=== PATIENT | male | born 1960 | race Caucasian/White ===

== ENCOUNTER 2021-07-17 02:08 | Outpatient (CLI) | payer OTHER, SELFPAY ==
--- NOTE | 2021-07-17 | DI.US_ITS ---
APPROVED REPORT EXAM: Comprehensive 2D, Doppler, and color-flow Echocardiogram Patient Location: Out-Patient Rn Nursery: Nelli Byers RDCS (AE) Indications: Dyspnea at rest, CAD, CABG X3, h/o [place] Other Information Study Quality: Adequate Conclusion Normal left ventricular wall thickness and chamber size. Estimated ejection fraction is 60%. There ar e no segmental wall motion abnormalities Normal right ventricular size and systolic function Both atria are normal in size There are no structural valvular abnormalities Mild mitral regurgitation Wall motion Left Ventricle The left ventricle is normal size. The left ventricular systolic function is normal. The left ventric ular ejection fraction is within the normal range. There is normal left ventricular wall thickness. T here is normal LV segmental wall motion. There is no ventricular septal defect visualized. LVEF is 60 %. Right Ventricle The right ventricle is normal size. The right ventricular systolic function is normal. The RVSP is 18 .8 mmHg. Atria The left atrium size is normal. The right atrium size is normal. The interatrial septum is intact wit h no evidence for an atrial septal defect. Aortic Valve The aortic valve is normal in structure. Aortic valve is trileaflet. There is no aortic valvular sten osis. No aortic regurgitation is present. Mitral Valve The mitral valve is normal in structure. No evidence of mitral valve stenosis. Mild mitral regurgitat ion. Tricuspid Valve The tricuspid valve is normal in structure. There is no tricuspid valve stenosis. Trace to mild tricu spid regurgitation. Pulmonic Valve The pulmonary valve is normal in structure. There is no pulmonic valvular stenosis. Trace pulmonic re gurgitation. Great Vessels The aortic root is normal in size. The ascending aorta is normal in size. Aortic arch is normal in ca liber. IVC is normal in size and collapses >50% with inspiration. Pericardium There is no pericardial effusion. 2D Dimensions IVSD d PLAX 0.91 cm M: 0.6-1.2 LV Vol A2C d MOD 99.4 mL LVPW d PLAX 0.92 cm M: 0.6 - 1.2 LV Vol A4C d MOD 118.2 mL LVID d PLAX 4.53 cm M: 4.2 - 5.8 LA vol/ BSA A2C s A-L 23.0 mL/m2 LVDs 3.05 cm M: 2.5 - 4.0 LA vol/ BSA A4C s A-L 22.9 mL/m2 Ao Root d 2.54 cm M: 3.1 - 3.7 LA Vol/ BSA Biplane s A-L 24.2 mL/m2 RA Area A4C 14.55 cm2 LA Area A4C s MOD 18.09 cm2 RA Vol/ BSA A4C s A-L 16.8 mL/m2 LA Area A2C s MOD 17.18 cm2 Ao Asc Diam d 3.29 cm M: 2.6 - 3.4 LV EF A4C MOD 56.0 % LV EF Teichholz 60.3 % LV EF A2C MOD 57.6 % LVEF (Lozano's) 55.81 % M: 52 - 72 LV EF Biplane MOD 55.8 % LV Volume 79.10 mL M: 62 - 150 SV 60.62 mL LV Volume Index 36.11 mL/m2 M: 34 - 74 SV Index 27.67 mL/m2 LV Vol Biplane MOD 108.6 mL FS 32.00 % M-Mode TAPSE 2.47 cm (M/F) >1.7 LV Diastology MV E' medial 0.078 (>0.07 m/s) E/A Ratio 1.2 LV E/e MED 11.10 (<14) MV E Vmax 0.87 (0.4-1.3 m/s) MV E' lateral 0.080 (>0.1 m/s) MV A Vmax 0.70 (0.4-1.3 m/s) LV E/e LAT 10.85 (<14) MV E/A Ratio 1.20 MV E/E' medial 11.13 MV E/E' lateral 10.90 Aortic Valve LVOT Area 2.88 cm2 AoV Area Vmax 2.24 cm2 LVOT Vmax 0.89 m/s AoV Area/ BSA (Vmax) 1.02 cm2/m2 LVOT Mean Rizwan. 0.50 m/s JAKUB Mean Rizwan. 1.73 cm2 LVOT Peak Grad 3.2 mmHg JAKUB Mean Rizwan. Index 0.79 cm2/m2 LVOT Mean Grad 1.3 mmHg LVOT VTI 0.178 m LVOT Diam s 1.90 cm AoV Vmax 1.15 m/s Velocity Ratio 0.77 AoV Mean Rizwan. 0.83 m/s AoV Peak Grad 5.3 mmHg LVOT SV 51.20 mL AoV Mean Grad 3.0 mmHg AoV VTI 0.261 m AoV Area VTI 1.96 cm2 AoV Area/ BSA (VTI) 0.89 cm/m2 Mitral Valve MV DT 195 (160-240 msec) MR Vmax 4.91 m/s MV PHT 56 msec MR VTI 1.828 m MV Area PHT 3.90 cm2 MR Peak Grad 96.6 mmHg MV VTI 0.371 m MR Mean Grad 72.8 mmHg MV VTI Annulus 0.372 m MR PISA Radius 0.52 cm MV Area VTI 1.38 (4.0-6.0 cm2) MR EROA 0.12 cm2 MR Aliasing Velocity 0.35 m/s MR PISA 1.72 cm2 Pulmonary Valve PV Vmax 1.11 (0.5-1.5 m/s) RVOT Peak Gr. 1.04 mmHg PV Peak Grad 4.9 mmHg RVOT Mean Gr. 0.55 mmHg PV Mean Grad 2.1 mmHg RVOT VTI 0.117 m PV VTI 0.230 m RVOT Vmax 0.51 m/s Tricuspid Valve TR Peak Grad 15.7 mmHg TR Vmax 1.98 m/s RA Pressure 3.00 mmHg RVSP (TR) 18.8 mmHg
== END 2021-07-17 02:28 ==
PROVIDERS: PCP Family Medicine; Visit Provider Family Medicine
DX: R06.09 Other forms of dyspnea (principal); I25.10 Atherosclerotic heart disease of native coronary artery without angina pectoris; I25.2 Old myocardial infarction; Z95.1 Presence of aortocoronary bypass graft; I34.0 Nonrheumatic mitral (valve) insufficiency
CPT/HCPCS: 93306

== ENCOUNTER 2021-09-23 13:17 | Outpatient (REF) | payer OTHER, SELFPAY ==
[2021-09-23 15:57] LABS: COMMENT (LAB VIEW ONLY) 85.14 mg/dL
[2021-09-24 10:18] LABS: HIV-1/2 Ag & Ab Screen Negative (Negative)
[2021-09-24 10:30] LABS: Hepatitis C Ab w Rflx HCV PCR Negative (Negative)
== END 2021-09-23 13:18 | disposition home or self-care (01) ==
LOC: NCHCN 13:17
PROVIDERS: PCP Family Medicine; Visit Provider Family Medicine
DX: Z11.4 Encounter for screening for human immunodeficiency virus [HIV] (principal); Z11.59 Encounter for screening for other viral diseases; E11.9 Type 2 diabetes mellitus without complications; Z00.00 Encounter for general adult medical examination without abnormal findings
CPT/HCPCS: 86803; 87389; 82043; 82570

== ENCOUNTER 2021-11-06 02:43 | Outpatient (CLI) | payer OTHER, SELFPAY ==
[2021-11-06] MEDS: Inhaler, Assist Device 1 EACH MC (11:55)
[2021-11-06] MEDS: Albuterol HFA 18 GM 200 PUFF INH IH (11:55)
--- NOTE | 2021-11-07 13:59 | W.PFT ---
Date of service: 11/06/21 Time of Service: 10:00 Pulmonary Function Test Result Requesting Provider Chuy Schwarz Indications: Dyspnea on exertion Interpretation Spirometry: There is moderately severe airflow limitation. There is a significant bronchodilator response. Lung Volumes: There is mild restriction Diffusion Capacity: The diffusion is reduced Airway Pressure: Airways resistance is normal Impression There is a mixed process. There is moderately severe airflow obstruction as well as mild restriction with a reduced diffusing capacity. Chest imaging may be indicated to assess for any interstitial lung disease Clinical Correlation therefore is recommended.
== END 2021-11-06 02:44 | disposition home or self-care (01) ==
LOC: RT 02:43
PROVIDERS: PCP Family Medicine; Visit Provider Family Medicine
DX: R06.09 Other forms of dyspnea (principal); Z95.1 Presence of aortocoronary bypass graft; G89.22 Chronic post-thoracotomy pain; J45.30 Mild persistent asthma, uncomplicated; Z87.891 Personal history of nicotine dependence; R94.2 Abnormal results of pulmonary function studies
CPT/HCPCS: 94060; 94726; 94729

== ENCOUNTER 2022-01-14 14:49 | Outpatient (REF) | payer OTHER, SELFPAY ==
[2022-01-14 15:16] LABS: HCT 49.3 % (40.0-50.0); HGB 15.8 g/dL (13.5-17.5); MCH 28.3 pg (27.0-33.0); MCV 88.4 fL (80-95); Platelet Count 196 10^3/uL (130-400); RBC 5.58 10^6/uL (4.36-5.78); RDW 14.6 % (11.8-14.1); RDW-SD 46.8 fL; WBC 10.74 10^3/uL (4.4-10.8)
[2022-01-14 15:36] LABS: ALT 44 U/L (16-63); AST 22 U/L (15-37); Albumin 4.1 g/dL (3.4-5.0); Alkaline Phosphatase 77 U/L (46-116); Anion Gap 10.7 mmol/L (3-11); BUN 18 mg/dL (7-18); Bilirubin, Total 0.6 mg/dL (0.2-1.0); CO2 26.3 mmol/L (21.0-32.0); CREATININE 1.1 mg/dL (0.70-1.30); Calcium 9.6 mg/dL (8.5-10.1); Chloride 104 mmol/L (98-107); Glucose 131 mg/dL (74-106); Potassium 4.5 mmol/L (3.5-5.1); Sodium 141 mmol/L (136-145); Total Protein 7.5 g/dL (6.4-8.2)
== END 2022-01-14 14:50 | disposition home or self-care (01) ==
LOC: NCHCN 14:49
PROVIDERS: PCP Family Medicine; Visit Provider Family Medicine
DX: Z00.00 Encounter for general adult medical examination without abnormal findings (principal); I10 Essential (primary) hypertension; R06.09 Other forms of dyspnea
CPT/HCPCS: 80053; 85027

== ENCOUNTER 2022-04-15 04:15 | Outpatient (CLI) | payer OTHER, SELFPAY ==
[2022-04-15 09:19] LABS: Source Nasal/Nares
[2022-04-15 14:15] LABS: COVID-19 PCR Negative (Negative)
== END 2022-04-15 04:16 | disposition home or self-care (01) ==
LOC: LBO 04:15
PROVIDERS: PCP Family Medicine; Visit Provider Surgery
DX: Z20.822 Contact with and (suspected) exposure to COVID-19 (principal); Z01.818 Encounter for other preprocedural examination
CPT/HCPCS: 87635

== ENCOUNTER 2022-04-17 09:14 | Day surgery (SDC) | payer OTHER, SELFPAY ==
--- NOTE | 2022-04-16 11:27 | W.COLOREPORT ---
Colonoscopy Report Date of procedure: 04/16/22 Pre-op diagnosis general: crc screen Post-op diagnosis procedure note: other (Diverticula and rectal polyp) Surgeon: Minerva Koenig Anesthesia Type: General:No Airway Estimated blood loss (mL): 1 Pathology: other Complications: None Disposition: same day Prep: Miralax/Dulcolax Retraction Time: 9 Procedure Description: After informed consent was obtained the patient was taken to the procedure room and placed in a left decubitous position. Monitors were applied and a time out was done. The patients name, date of , procedure, allergies to medications and metal in their body was reviewed. The patient was then sedated. Once sedated and comfortable a rectal exam was done. External exam was normal. Internal exam revealed a normal sphincter tone and no palpable masses. The scope was then introduced and retrofelexed. No internal hemorrhoids were identified. The scope was then advanced to the cecum without difficulty. The TI and appendiceal orifice were identified. The prep was BB PS 3 in all segments for a total of 9.. The scope was then slowly retracted over 9 minutes back into the rectum. he has a small flat 5 mm polyp in the rectum. This is removed with a cold biting forcep. All specimen is retrieved and no bleeding is noted. He has moderate diverticula of the sigmoid colon. There is no signs of active bleeding or infection. The mucosa is pink and healthy with a normal vascular pattern. There are no AVMs visualized today. The scope was removed and the patient was woken up and taken back to Same day surgery in stable condition. The patient tolerated the procedure well and there were no immediate complications. Follow up: The patient should follow up in 5-7 years, unless they develop changes in bowel habits or other new gastrointestinal complaints.
--- NOTE | 2022-04-16 11:28 | PDOC.DSDIS_ITS ---
Discharge Plan Disposition Patient Disposition: HOME Condition: Good Discharge Details Reason For Visit: colon scope Attending Provider: Minerva Koenig Primary Care Provider: Chuy Schwarz Home Meds and New Rx's Prescriptions: Continued coenzyme Q10 [Co Q-10] 10 mg capsule 10 mg PO DAILY budesonide-formoterol [Symbicort] 160-4.5 mcg/actuation HFA aerosol inhaler 2 puff inhalation BID Qty: 10.2 7RF Spiriva Respimat 2.5 mcg/actuation mist 2 puff inhalation DAILY aspirin 81 MG tablet,delayed release (DR/EC) 81 mg PO DAILY albuterol sulfate [Proventil HFA] 6.7 GM HFA aerosol inhaler 1 - 2 puff Inhalation Q6H PRN Qty: 2 atorvastatin [Lipitor] 80 MG tablet 80 mg PO DAILY Qty: 90 (DME) OneTouch Ultra Test 1 EACH strip 1 ea Miscellaneous AC & HS Qty: 120 Rx Instructions: 250.00 to test blood sugars daily to maintain HGB A1C less than 7. (DME) pen needle, diabetic [Pen Needle] 1 EACH needle 1 ea Miscellaneous QID Qty: 5 Rx Instructions: 31 gauge 5/16 inch BD brand E11.65 Levemir FlexTouch U-100 Insuln 100 unit/mL (3 mL) insulin pen 50 unit subcut QHS glipizide [Glucotrol XL] 5 mg tablet extended release 24hr 5 mg PO DAILY Jardiance 10 mg tablet 10 mg PO DAILY hydroxychloroquine 200 mg tablet 200 mg PO DAILY metoprolol succinate 100 mg tablet extended release 24 hr 100 mg PO DAILY isosorbide mononitrate 30 mg tablet extended release 24 hr 30 mg PO DAILY ezetimibe [Zetia] 10 mg tablet 10 mg PO DAILY lisinopril 5 mg tablet 5 mg PO DAILY gabapentin 100 mg Capsule 100 mg PO TID Discontinued bisacodyl [Dulcolax (bisacodyl)] 5 mg tablet,delayed release (DR/EC) 5 mg PO ONCE Qty: 4 0RF Rx Instructions: Take according to provider's instructions for colonoscopy prep. polyethylene glycol 3350 17 gram/dose powder 17 g PO ONCE Qty: 238 0RF Rx Instructions: To be taken as directed by prescriber's office for colonoscopy prep. Discharge Instructions Additional Instructions: DSU Colonoscopy Post- Op Instructions Instructions for Everyone who is given Anesthesia: For your safety, please do the following for the next twenty-four (24) hours: *Do Not operate a motor vehicle (car, truck, motorcycle, etc.) *Do Not drink alcoholic beverages or use any recreational drugs for the first 24 hours or while taking pain medications. The medications in your body may have a reaction that can be dangerous. *Do Not make any important decisions or sign any important papers. Findings: -diverticula. Make sure you are moving your bowels on a regular basis and not straining. If you find you have problems with constipation or irregularity, I recommend taking a fiber supplement daily. Follow up: Small polyp.-My office will send a letter in 2 to 3 weeks time detailing as to what type of polyp it was and when we want you to repeat the colonoscopy. 1. No lifting over 20 pounds or strenuous activity for the first 24 hours after your procedure. After 24 hours there are no restrictions on your activity but you may feel fatigued for a few days. 2. After you arrive home you may have a light meal and return to your normal diet as you can tolerate it without feeling sick to your stomach. 3. You may have a bloated, gaseous feeling in your belly (abdomen) after a colonoscopy. Passing gas and belching will help. Walking or lying down on your left side with your knees flexed may relieve the discomfort. Call the office at [phone] (Office) or [phone] (Hospital) right away if you notice any of the following: a.Vomiting of blood or ?coffee ground stools?. b.Rectal bleeding 1Tbsp, blood clots or continuous bleeding. c.Severe belly (abdominal) pain. d.A hard distended belly (abdomen) and an inability to pass gas. 4. Please don?t expect to have a normal BM (bowel movement) for 2-3 days after your procedure. 5. If there are questions regarding the findings of your procedure, please contact your doctor 6. If you are unable to contact your doctor with a problem, contact the hospital at [phone]. 7. Continue all your regular medications unless directed otherwise. I understand the above instructions and have no questions. Signature of Patient or Adult Escort Name of Responsible Adult Escort Signature of Nurse Date/Time Stand Alone Forms: Anesthesia Discharge Gabe Fan (DSU) Activity:: See above Diet:: See above Discharge Orders Discharge Orders: Discharge Order (Routine); Ordered 04/16/22 Ordered By: Minerva Koenig
[2022-04-17 09:30] VITALS: BP 152/99; PULSE 87; RESP 18; TEMP 36.3; O2SAT 97
[2022-04-17] MEDS: Lactated Ringers 1,000 ML 80 ML IV (09:51)
--- NOTE | 2022-04-17 10:00 | W.ANESPRE ---
General Info Date of Service Date Performed: 04/17/22 Height: 5 ft 9 in Weight: 108.2 kg Body Mass Index (BMI): 35.2 Surgical Procedure: Operation Date: 04/17/22 09:05 Proposed Procedure Side Surgeon carlos Koenig, DO Meds Allergies and Home Medications Allergies Allergy/AdvReac Type Severity Reaction Status Date / Time metformin AdvReac Unknown sick to Verified 04/17/22 09:34 stomach methotrexate AdvReac Unknown sick to Verified 04/17/22 09:34 stomach Home Medication Medication Instructions Recorded aspirin 81 mg tablet,delayed 81 mg PO DAILY 01/20/13 release albuterol sulfate 90 mcg/actuation 1 - 2 puff inhalation Q6H PRN ##2 02/10/16 aerosol inhaler (Proventil HFA) atorvastatin 80 mg tablet (Lipitor) 80 mg PO DAILY #90 tab-caps 03/13/16 blood sugar diagnostic (OneTouch #120 strips 03/13/16 Ultra Test strips) pen needle, diabetic 31 gauge x ##5 11/27/1604/06 (Pen Needle) empagliflozin 10 mg tablet 10 mg PO DAILY 09/18/21 (Jardiance) ezetimibe 10 mg tablet (Zetia) 10 mg PO DAILY 09/18/21 glipizide 5 mg tablet, extended 5 mg PO DAILY 09/18/21 release 24 hr (Glucotrol XL) hydroxychloroquine 200 mg tablet 200 mg PO DAILY 09/18/21 insulin detemir U-100 100 unit/mL 50 unit subcut QHS 09/18/21 (3 mL) subcutaneous pen (Levemir FlexTouch U-100 Insulin) isosorbide mononitrate 30 mg 30 mg PO DAILY 09/18/21 tablet,extended release 24 hr lisinopril 5 mg tablet 5 mg PO DAILY 09/18/21 metoprolol succinate 100 mg 100 mg PO DAILY 09/18/21 tablet,extended release 24 hr budesonide-formoterol HFA 160 2 puff inhalation BID #10.2 grams 11/11/21 mcg-4.5 mcg/actuation aerosol inhaler (Symbicort) coenzyme Q10 10 mg capsule (Co 10 mg PO DAILY 11/11/21 Q-10) tiotropium bromide 2.5 2 puff inhalation DAILY 02/10/22 mcg/actuation mist for inhalation (Spiriva Respimat) gabapentin 100 mg capsule 100 mg PO TID 04/14/22 Current Visit Medications: Current Medications Generic Name Dose Route Start Last Admin Trade Name Kathleen PRN Reason Stop Dose Admin Hyoscyamine Sulfate 0.125 mg 04/16/22 11:27 Hyoscyamine 0.125 Mg Sl/Oral/Chew SL DIRECTED PRN Ringer's Solution 1,000 mls @ 80 mls/hr 04/17/22 06:00 04/17/22 09:51 IV 04/21/22 23:59 80 mls/hr INFUSION TORSTEN Administration IV Miscellaneous Supplies 1 each 04/17/22 06:00 Iv Access IV 04/21/22 23:59 DIRECTED TORSTEN Ondansetron HCl 4 mg 04/16/22 11:27 Ondansetron 4 Mg/2 Ml Vial IVP Q4H PRN PRN Nausea / Vomiting Sodium Chloride 0 ml 04/17/22 06:00 Normal Saline Flush 10 Ml Syr IV 04/21/22 23:59 PRN PRN Sodium Chloride 0 ml 04/17/22 06:00 Normal Saline 10 Ml Vial IJ 04/21/22 23:59 DIRECTED PRN Sterile Water 0 ml 04/17/22 06:00 Water,Injection,Sterile 10 Ml Vial IJ 04/21/22 23:59 DIRECTED PRN PFSH Active Problems Active Problems: Problem Status Onset Code Type 2 diabetes mellitus E11.9 Restrictive lung disease J98.4 Rheumatoid arthritis M06.9 Dyspnea R06.00 Asthma J45.909 Medical History Medical History Acute post-thoracotomy pain ASCVD (arteriosclerotic cardiovascular disease) CAD (coronary artery disease) Chronic asthma Diabetes mellitus Essential hypertension History of non-ST elevation myocardial infarction (NSTEMI) Hyperlipidemia Neuropathy Rheumatoid arthritis Shortness of breath at rest Vertigo, intermittent Surgical History Surgical History History of colonoscopy History of coronary artery bypass graft (~02/2021) x3 History of surgery Surgery on neck (?I&D), per pt. -BR Tobacco Smoking/Tobacco Use Status: Former Tobacco Use Second hand exposure: No Alcohol Alcohol Intake: current Alcohol intake frequency: a few times a month Alcohol type: beer Substance Use Substance use: Never Substance use type: does not use Vital Signs and Lab Results Vital Signs Most Recent Vital Signs in EMR: Most Recent Vital Signs Temp Pulse Resp BP Pulse Ox 36.3 C L 87 18 152/99 H 97 04/17/22 09:30 04/17/22 09:30 04/17/22 09:30 04/17/22 09:30 04/17/22 09:30 Point of Care Results Point of Care Results: Finger Stick Blood Glucose 171 04/17/22 09:42 Lab Results Blood Type / Crossmatch: No Data to Display Complete Blood Count: No Data to Display Complete Metabolic Panel: No Data to Display Liver Function Panel: No Data to Display Coagulation Panel: No Data to Display Cardiac Panel: No Data to Display Arterial Blood Gas: No Data to Display Venous Blood Gas: No Data to Display Pancreas Panel: No Data to Display Thyroid Panel: No Data to Display Infectious Disease: Coronavirus (COVID-19)(PCR) Negative (Negative) 04/15/22 09:05 Coronavirus 2019 Source Nasal/Nares 04/15/22 09:05 Blood Cultures: No Data to Display Toxicology Panel: No Data to Display Imaging and Studies Imaging and Studies Study information below may be from another EMR and interpreted by another provider. Please see original notes in EMR for more complete details. Echocardiogram Summary: Date of Exam: 07/17/21Sex: M Admission Date: 07/17/21 : 1960 Age: 60 APPROVED REPORT EXAM: Comprehensive 2D, Doppler, and color-flow Echocardiogram Patient Location: Out-Patient University Lecturer: Nelli Byers RDCS ([facility]) Indications: Dyspnea at rest, CAD, CABG X3, h/o [place] Other Information Study Quality: Adequate Conclusion Normal left ventricular wall thickness and chamber size. Estimated ejection fraction is 60%. There are no segmental wall motion abnormalities Normal right ventricular size and systolic function Both atria are normal in size There are no structural valvular abnormalities Mild mitral regurgitation Pulmonary Function Summary: Date of service: 11/06/21 Time of Service: 10:00 Pulmonary Function Test Result Requesting Provider Chuy Schwarz Indications: Dyspnea on exertion Interpretation Spirometry: There is moderately severe airflow limitation. There is a significant bronchodilator response. Lung Volumes: There is mild restriction Diffusion Capacity: The diffusion is reduced Airway Pressure: Airways resistance is normal Impression There is a mixed process. There is moderately severe airflow obstruction as well as mild restriction with a reduced diffusing capacity. Chest imaging may be indicated to assess for any interstitial lung disease Clinical Correlation therefore is recommended. Anesthesia Assessment and Plan Anesthesia History Personal History: No History of Anesthesia Complications Family History: No Family History of Anesthesia Complications Exercise Tolerance Exercise Tolerance: Metabolic Equivalents>4 Pertinent Negatives Pertinent Negatives: No Symptoms of GERD Cardiac & Pulmonary Exam Cardiac Exam: Normal S1/S2 Heart Sounds Pulmonary Exam: Clear Bilateral Breath Sounds Implantable Cardiac Device Does patient have a Pacemaker or an ICD?: No Airway Exam Known Difficult Airway: No Mallampati Class: 2 Mouth Opening: Normal (> 3cm) Thyromental Distance: Greater than 3 cm Neck Range of Motion: Full ROM Neck Circumference: Normal Teeth Condition: Normal Dentition ASA Classification ASA Score: ASA 3 Emergency Case?: No NPO Status NPO Status: NPO Clears >2 hours, Solids >8 hours Anesthesia Plan Resuscitation Status: Full Code Anesthesia Technique: General Anesthesia Airway Planned: Natural Airway Monitors Used: Standard Monitors
[2022-04-17 10:18] VITALS: BMI 35.2
--- NOTE | 2022-04-17 10:47 | BOWEL_PTH ---
PATIENT: Guanakito Cho LOC: [facility] U#:[id number] AGE/SX: 61/M ROOM: RE04/17/[address]: Minerva Koenig : 1960 BED: DIS: 04/17/2022 SPEC #: [id number] RECD: 04/17/22 11:36 STATUS: ALBARO REBenjamin #: [id number] STEVE: 04/17/22 10:[address]: Minerva Koenig DEPT: Surgical Specimen RECD BY: Kylah Givens ENTERED: 04/17/22 11:36 SP TYPE: Bowel OTHR DR: Chuy Schwarz Tissues: 1 - BIOPSY BOWEL Procedures: GROSS AND MICRO LEVEL 4 Comments: [id number]
[2022-04-17 10:52] VITALS: BP 121/84; PULSE 78; RESP 20; TEMP 36.4; O2SAT 92
[2022-04-17 11:20] VITALS: BP 149/55; PULSE 63; RESP 20; TEMP 36.5; O2SAT 96
--- NOTE | 2022-04-17 11:32 | W.ANESPOSTOP ---
Postoperative Evaluation Date, Time and Location Date Performed: 04/17/22 Time Performed: 10:32 Patient Location: Day Surgery Unit Vital Signs Most Recent Imported Vital Signs: Most Recent Vital Signs Temp Pulse Resp BP Pulse Ox 36.5 C 63 20 149/55 H 96 04/17/22 11:20 04/17/22 11:20 04/17/22 11:20 04/17/22 11:20 04/17/22 11:20 Pain Score Most Recent Pain Score: Most Recent Pain Score Pain Level 0 04/17/22 11:20 Assessment Mental Status: Awake (Alert & Oriented to Patient Baseline) Airway and Respiratory Function: Patent airway with normal (patient baseline) respiratory exam Cardiovascular Function: Hemodynamically Stable Hydration Status: Adequately Hydrated Nausea & Vomiting: No Nausea or Vomiting Pain: Pt. Denies Any Pain Peripheral Nerve Block: Patient did not receive a nerve block
== END 2022-04-17 11:55 | disposition home or self-care (01) ==
PROVIDERS: PCP Family Medicine; Visit Provider Surgery
PROC: 0DJD8ZZ Inspection of Lower Intestinal Tract, Via Natural or Artificial Opening Endoscopic (ICD-10-PCS; CPT 45378; principal; 2022-04-17 09:00)
DX: Z12.11 Encounter for screening for malignant neoplasm of colon (principal); K62.1 Rectal polyp; K57.30 Diverticulosis of large intestine without perforation or abscess without bleeding; E11.40 Type 2 diabetes mellitus with diabetic neuropathy, unspecified
CPT/HCPCS: 45380; 88305

== ENCOUNTER 2022-05-14 03:39 | Outpatient (CLI) | payer OTHER, SELFPAY | END 2022-05-14 03:40 | disposition home or self-care (01) | PROVIDERS: PCP Family Medicine; Visit Provider Pediatrics Pediatric Rheumatology | DX: Z02.71 Encounter for disability determination (principal); R06.02 Shortness of breath | CPT/HCPCS: 94618 ==

== ENCOUNTER 2022-07-15 16:51 | Outpatient (REF) | payer OTHER, SELFPAY ==
[2022-07-15 17:04] LABS: ALT 45 U/L (16-63); AST 27 U/L (15-37); Albumin 3.8 g/dL (3.4-5.0); Alkaline Phosphatase 74 U/L (46-116); BUN 16 mg/dL (7-18); Bilirubin, Total 0.8 mg/dL (0.2-1.0); Calcium 8.9 mg/dL (8.5-10.1); Calculated LDL 40 mg/dL (<100); Chloride 105 mmol/L (98-107); Cholesterol 99 mg/dL (<200); Glucose 178 mg/dL (74-106); HDL Cholesterol 38 mg/dL (40-60); Potassium 4.7 mmol/L (3.5-5.1); Sodium 140 mmol/L (136-145); Total Protein 7.2 g/dL (6.4-8.2); Triglyceride 108 mg/dL (<150)
== END 2022-07-15 16:52 | disposition home or self-care (01) ==
LOC: NCHCN 16:51
PROVIDERS: PCP Family Medicine; Visit Provider Family Medicine
DX: E11.9 Type 2 diabetes mellitus without complications (principal); E78.5 Hyperlipidemia, unspecified; I10 Essential (primary) hypertension; I25.10 Atherosclerotic heart disease of native coronary artery without angina pectoris
CPT/HCPCS: 80053; 80061

== ENCOUNTER 2024-04-11 09:19 | Outpatient (REF) | payer MEDICARE, BC, SELFPAY ==
[2024-04-11 14:28] LABS: HCT 49.6 % (40.0-50.0); HGB 16.1 g/dL (13.5-17.5); MCHC 32.5 % (32.0-36.0); MCV 93 fL (80-95); MPV 10.4 fL (8.0-11.0); Platelet Count 214 10^3/uL (130-400); RBC 5.36 10^6/uL (4.36-5.78); RDW 14.6 % (11.8-14.1); RDW-SD 49.5 fL; WBC 8.02 10^3/uL (4.4-10.8)
[2024-04-11 15:02] LABS: ALT 51 U/L (16-63); AST 31 U/L (15-37); Albumin 3.7 g/dL (3.4-5.0); Alkaline Phosphatase 78 U/L (46-116); Anion Gap 7.1 mmol/L (3-11); BUN 14 mg/dL (7-18); Bilirubin, Total 0.8 mg/dL (0.2-1.0); CO2 25.9 mmol/L (21.0-32.0); CREATININE 1.1 mg/dL (0.70-1.30); Calcium 9.8 mg/dL (8.5-10.1); Chloride 104 mmol/L (98-107); Glucose 192 mg/dL (74-106); LDL CHOLESTEROL 54 mg/dL (<100); Potassium 4.6 mmol/L (3.5-5.1); Sodium 137 mmol/L (136-145); Total Protein 6.8 g/dL (6.4-8.2)
== END 2024-04-11 09:20 | disposition home or self-care (01) ==
LOC: NCHCN 09:19
PROVIDERS: PCP Family Medicine; Visit Provider Family Medicine
DX: E11.9 Type 2 diabetes mellitus without complications (principal)
CPT/HCPCS: 80053; 83721; 85027

== ENCOUNTER 2024-07-12 23:53 | Outpatient (REF) | payer MEDICARE, BC, OTHER, SELFPAY ==
[2024-07-12 16:08] LABS: COMMENT (LAB VIEW ONLY) 94.45 mg/dL
[2024-07-12 16:59] LABS: Microalb ug/mg Crea 303.4 ug/mg Cr
== END 2024-07-12 23:54 | disposition home or self-care (01) ==
LOC: NCHCN 23:53
PROVIDERS: PCP Family Medicine; Visit Provider Family Medicine
DX: E11.9 Type 2 diabetes mellitus without complications (principal)
CPT/HCPCS: 82043; 82570

== ENCOUNTER 2025-04-18 10:00 | Outpatient (REF) | payer MEDICARE, BC, SELFPAY ==
[2025-04-18 14:34] LABS: Abs Immature Grans 0.02 10^3/uL (0.0-0.06); Absolute Basophil Count 0.03 10^3/uL (0.0-0.2); Absolute Lymphocyte Count 3.22 10^3/uL (1.2-3.4); Absolute Monocyte Count 0.84 10^3/uL (0.1-0.8); Absolute Neutrophil Count 4.68 10^3/uL (1.2-6.7); Basophils % 0.3 %; Eosinophils % 3.3 %; HCT 48.7 % (40.0-50.0); HGB 15.6 g/dL (13.5-17.5); Immature Grans % 0.2 %; Lymphocytes % 35.4 %; MCH 30.4 pg (27.0-33.0); MCV 95 fL (80-95); MPV 10.7 fL (8.0-11.0); Monocytes % 9.2 %; Neutrophils % 51.6 %; Platelet Count 203 10^3/uL (130-400); RBC 5.14 10^6/uL (4.36-5.78); RDW 14.3 % (11.8-14.1); RDW-SD 50.1 fL; WBC 9.09 10^3/uL (4.4-10.8)
[2025-04-18 15:25] LABS: ALT 48 U/L (16-63); AST 36 U/L (15-37); Albumin 3.7 g/dL (3.4-5.0); Alkaline Phosphatase 82 U/L (46-116); Anion Gap 6.2 mmol/L (3-11); BUN 23 mg/dL (7-18); Bilirubin, Total 0.8 mg/dL (0.2-1.0); CO2 28.8 mmol/L (21.0-32.0); CREATININE 1.1 mg/dL (0.70-1.30); Calcium 8.9 mg/dL (8.5-10.1); Calculated LDL 33 mg/dL (<100); Chloride 104 mmol/L (98-107); Cholesterol 102 mg/dL (<200); Estimated GFR 75.43 (mL/min/1.73m2); Glucose 171 mg/dL (74-106); HDL Cholesterol 34 mg/dL (>or=40); Potassium 4.8 mmol/L (3.5-5.1); Sodium 139 mmol/L (136-145); Total Protein 6.9 g/dL (6.4-8.2); Triglyceride 177 mg/dL (<150)
== END 2025-04-18 10:01 | disposition home or self-care (01) ==
LOC: NCHCN 10:00
PROVIDERS: PCP Family Medicine; Visit Provider Family Medicine
DX: I10 Essential (primary) hypertension (principal); E78.5 Hyperlipidemia, unspecified
CPT/HCPCS: 80053; 80061; 85025

== ENCOUNTER → 2025-05-30 08:19 | Outpatient (BNVA) | payer MEDICARE, BC, SELFPAY | PROVIDERS: PCP Family Medicine; Referring Provider Family Medicine; Visit Provider Podiatrist | DX: E11.42 Type 2 diabetes mellitus with diabetic polyneuropathy (principal); I73.89 Other specified peripheral vascular diseases; I87.2 Venous insufficiency (chronic) (peripheral); R60.0 Localized edema; Q82.8 Other specified congenital malformations of skin; L84 Corns and callosities; B35.1 Tinea unguium; L60.3 Nail dystrophy; R25.2 Cramp and spasm; R09.89 Other specified symptoms and signs involving the circulatory and respiratory systems; L60.8 Other nail disorders; R23.8 Other skin changes; L65.9 Nonscarring hair loss, unspecified; L60.2 Onychogryphosis | CPT/HCPCS: 11056; 11719; 17110 ==

== ENCOUNTER 2025-07-19 12:23 | Outpatient (REF) | payer MEDICARE, BC, SELFPAY ==
[2025-07-19 17:06] LABS: COMMENT (LAB VIEW ONLY) 148.55 mg/dL
[2025-07-19 17:13] LABS: Microalb ug/mg Crea 527.4 ug/mg Cr
== END 2025-07-19 12:24 | disposition home or self-care (01) ==
LOC: NCHCN 12:23
PROVIDERS: PCP Family Medicine; Visit Provider Family Medicine
DX: E11.9 Type 2 diabetes mellitus without complications (principal)
CPT/HCPCS: 82043; 82570

== ENCOUNTER → 2025-09-25 07:56 | Outpatient (BNVA) | payer MEDICARE, BC, SELFPAY | PROVIDERS: PCP Family Medicine; Referring Provider Family Medicine; Visit Provider Podiatrist | DX: L60.3 Nail dystrophy (principal); B35.1 Tinea unguium; L84 Corns and callosities; I73.89 Other specified peripheral vascular diseases; E11.42 Type 2 diabetes mellitus with diabetic polyneuropathy; I87.2 Venous insufficiency (chronic) (peripheral); R60.0 Localized edema; L85.8 Other specified epidermal thickening; R09.89 Other specified symptoms and signs involving the circulatory and respiratory systems; R23.4 Changes in skin texture; L65.9 Nonscarring hair loss, unspecified; L60.2 Onychogryphosis; L60.8 Other nail disorders | CPT/HCPCS: 11056; 11720; 11719; 93922 ==